=== PATIENT | female | born 1950 | race Caucasian/White ===

== ENCOUNTER → 2017-12-04 | Outpatient (CLI) | payer BC, MEDICARE ==
[~2017-12-04] MED LIST: ADV100/50 INH; ALLEGRA; PROVENTIL
--- NOTE | 2017-12-05 08:24 | RADIOLOGY IMAGING REPORT ---
[place]AC[place] [facility] [place]IENT NAME: GRETCHEN DIAZ : [id number] MR: [id number] V: [id number] EXAM DATE: [id number] ORDERING PHYSICIAN: BENY ALATORRE TECHNOLOGIST: Viji Rasheed PROCEDURE:BILATERAL DIGITAL SCREENING MAMMOGRAM WITH CAD ASSISTED INTERPRETATION & 3D TOMOSYNTHESIS COMPARISON:Prior mammograms 07/08/16, 01/27/15, 11/14/13, 03/20/12. INDICATIONS:screening FINDINGS: Moderately heterogeneous fibroglandular tissue is seen throughout the breasts. The parenchymal pattern has remained stable allowing for difference in mammographic technique & patient positioning. There is no evidence of malignant appearing mass, malignant appearing calcifications or other secondary sign of malignancy in either breast. DIAGNOSTIC CATEGORY 1--NEGATIVE. RECOMMENDATIONS: ROUTINE MAMMOGRAM AND CLINICAL EVALUATION. IMPRESSION: BIRADS 1: Negative. No significant abnormality is seen. Dictated by: Vandana Turpin M.D. on 12/04/2017 at 16:31 Transcribed by: LAURA on 12/05/2017 at 7:49 Approved by: Vandana Turpin M.D. on 12/05/2017 at 8:23 [facility]
== END ==
LOC: MAMO 00:43
PROVIDERS: ATTEND Nurse Practitioner Family
DX: Z12.31 Encounter for screening mammogram for malignant neoplasm of breast (principal)
CPT/HCPCS: 77063; 77067